=== PATIENT | male | born 1960 | race Two or more races ===

== ENCOUNTER 2025-05-16 14:36 | Outpatient (REF) | payer MEDICARE, MEDICAID, SELFPAY ==
[2025-05-16 15:02] LABS: Hematocrit 33.6 % (42.0-54.0); Hemoglobin 11.8 g/dL (14.0-18.0); Immature Granulocytes Abs Auto 0.01 10^3/uL (0.00-0.03); Immature Granulocytes Pct Auto 0.2 % (0.0-0.5); Lymphocytes Absolute Auto 1.2 10^3/uL (1.2-3.8); Mean Corpuscular HGB Conc 35.1 g/dL (29.9-35.2); Mean Corpuscular Hemoglobin 29.9 pg (25.9-34.0); Mean Corpuscular Volume 85.3 fL (80.0-94.0); Platelet Count 167 10^3/uL (150-450); Red Blood Count 3.94 10^6/uL (4.70-6.10); White Blood Count 4.2 10^3/uL (4.0-11.0)
[2025-05-16 15:05] LABS: Glucose Urine UA NEGATIVE (NEGATIVE)
[2025-05-16 15:12] LABS: Anion Gap 13.9; Blood Urea Nitrogen 12.0 mg/dL (7.0-18.0); Calcium 8.7 mg/dL (8.5-10.1); Carbon Dioxide 25.4 mmol/L (21.0-32.0); Chloride 103 mmol/L (98-107); Estimated GFR (African America >60 (>=60 mL/min/1.73m^2); Estimated GFR (Non-African Ame >60 (>=60 mL/min/1.73m^2); Glucose 125 mg/dL (74-106); Potassium 4.3 mmol/L (3.5-5.1); Sodium 138 mmol/L (136-145)
== END 2025-05-16 14:37 | disposition home or self-care (01) ==
LOC: LAB 14:36
PROVIDERS: PCP Internal Medicine; Visit Provider Nurse Practitioner Family
DX: R53.83 Other fatigue (principal)
CPT/HCPCS: 36415; 80048; 81003; 85025